=== PATIENT | male | born 1985 | race Caucasian/White ===

== ENCOUNTER 2018-03-21 10:39 | Emergency (ER) | payer SELFPAY ==
[~2018-03-21] VITALS: Ht 175.3 cm; Wt 76.0 kg
--- NOTE | 2018-03-21 11:20 | NUR ---
THIS IS A 32 YO MALE WHO PRESENTS TO THE ER C/O CHRONIC RINGING IN BILAT EARS, RIGHT WORSE TODAY THAN NORMAL AND FREQUENT HEADACHES, PT REPORTS VERY MILD COTA TODAY. PT REPORTS "I WOKE UP AND I JUST FEEL OFF". PT AO X 4. SKIN PWD. RESP EVEN AND EQAUL. PT ABLE TO CAPUTO W/O DIFFICULTY. PERRLA. SENSATION INTACT. MOTHER AT BEDSIDE. PT ON CONT BP AND O2 MONITORS. CALL LIGHT WITHIN REACH. WILL CONT TO MONITOR PT.
[2018-03-21 11:21] VITALS: BP 127/84
--- NOTE | 2018-03-21 12:00 | NUR ---
PT WAS DC'D BY FOZIA LEE WHO DISCUSSED POC WITH PT AND PT'S MOTHER. PT VERBALIZED UNDERSTANDING OF INSTRUCTIONS. PT DID NOT WAIT FOR WRITTEN DC INSTRUCTIONS FROM RN BEFORE LEAVING.
== END 2018-03-21 12:04 | disposition home or self-care (01) ==
LOC: ED 11:58
DX: H93.11 Tinnitus, right ear (principal); R51 Headache; F17.210 Nicotine dependence, cigarettes, uncomplicated
CPT/HCPCS: 99282

== ENCOUNTER 2018-09-06 15:20 | Emergency (ER) | payer MEDICAID ==
[~2018-09-06] VITALS: Ht 175.3 cm; Wt 74.1 kg
[2018-09-06 15:28] VITALS: BP 137/89
== END 2018-09-06 15:57 | disposition home or self-care (01) ==
LOC: ED 15:49
DX: K02.9 Dental caries, unspecified (principal); F17.210 Nicotine dependence, cigarettes, uncomplicated
CPT/HCPCS: 99283; 99406

== ENCOUNTER 2018-09-15 01:21 | Emergency (ER) | payer MEDICAID, OTHER ==
[~2018-09-15] VITALS: Ht 175.3 cm; Wt 74.8 kg
[2018-09-15 01:23] VITALS: BP 143/93
--- NOTE | 2018-09-15 01:35 | NUR ---
pt ambulates from triage to room with steady gait.
[2018-09-15 02:19] LABS: BASOPHILS # (AUTO) 0.05 x10^3/uL (0-0.1); BASOPHILS % (AUTO) 1 % (0-1); EOSINOPHILS % (AUTO) 2 % (1-7); LYMPHOCYTES # (AUTO) 2.13 x10^3/uL (1-3.4); LYMPHOCYTES % (AUTO) 32 % (22-44); MD NO; MEAN CORPUSCULAR HEMOGLOBIN 31.1 pg (27.5-34.5); MEAN CORPUSCULAR VOLUME 91.5 fL (81-97); MEAN PLATELET VOLUME 8.2 fL (7.4-10.4); MONOCYTES # (AUTO) 0.52 x10^3/uL (0.2-0.8); MONOCYTES % (AUTO) 8 % (2-9); NEUTROPHILS # (AUTO) 3.83 x10^3/uL (1.8-6.8); NEUTROPHILS % (AUTO) 58 % (42-75); PLATELET COUNT 306 x10^3/uL (130-400); RED BLOOD COUNT 5.23 x10^6/uL (4.38-5.82); RED CELL DISTRIBUTION WIDTH 12.9 % (9.4-14.8)
[2018-09-15 02:27] LABS: ALBUMIN 4.1 g/dL (3.4-5.0); ANION GAP 9 mmol/L (5-15); CALCIUM 9.3 mg/dL (8.5-10.1); CHLORIDE 109 mmol/L (98-107); CREATININE 1.18 mg/dL (0.7-1.3)
[2018-09-15 02:56] LABS: MICROSCOPIC INDICATED
[2018-09-15 03:03] LABS: AMPHETAMINE SCREEN, URINE Positive (Negative); BARBITURATE SCREEN, URINE Negative (Negative); BENZODIAZEPINE SCREEN, URINE Negative (Negative); CANNABINOID SCREEN, URINE Negative (Negative); COCAINE SCREEN, URINE Negative (Negative); METHADONE SCREEN, URINE Negative (Negative); OPIATE SCREEN, URINE Negative (Negative)
[2018-09-15 03:04] LABS: CULTURE INDICATED? NO
--- NOTE | 2018-09-15 03:26 | NUR ---
pt d/c with d/c summary. all questions answered. pt ambulates to registration desk with steady gait at this time for d/c home with friend.
== END 2018-09-15 03:29 | disposition home or self-care (01) ==
LOC: ED 02:10
DX: R53.1 Weakness (principal); F15.129 Other stimulant abuse with intoxication, unspecified; F17.200 Nicotine dependence, unspecified, uncomplicated; Z72.9 Problem related to lifestyle, unspecified
CPT/HCPCS: 36415; 80048; 80307; 81001; 82040; 85025; 87806; 99283; G0475

== ENCOUNTER 2020-03-19 02:16 | Emergency (ER) | payer MEDICAID ==
[~2020-03-19] VITALS: Ht 175.3 cm; Wt 80.1 kg
--- NOTE | 2020-03-19 02:51 | NUR ---
ASSESSMENT MADE. SEEN BY PA. ORDERS MADE.
--- NOTE | 2020-03-19 03:11 | NUR ---
BLOOD DRAWN BY [employer] DEVELOPMENT ENGINEER. X RAY AND EKG DONE. HOOKED TO MONITOR.
[2020-03-19 03:14] LABS: BASOPHILS % (AUTO) 1 % (0-1); EOSINOPHILS % (AUTO) 4 % (1-7); LYMPHOCYTES % (AUTO) 42 % (22-44); MEAN CORPUSCULAR HGB CONC 35.3 g/dL (33.2-36.2); MEAN PLATELET VOLUME 8.3 fL (7.4-10.4); MONOCYTES % (AUTO) 12 % (2-9); NEUTROPHILS % (AUTO) 42 % (42-75); PLATELET COUNT 309 x10^3/uL (130-400); RED BLOOD COUNT 5.33 x10^6/uL (4.38-5.82); RED CELL DISTRIBUTION WIDTH 13.6 % (9.4-14.8)
[2020-03-19 03:21] LABS: ALANINE AMINOTRANSFERASE 49 U/L (12-78); ANION GAP 8 mmol/L (5-15); CALCIUM 9.8 mg/dL (8.5-10.1); CHLORIDE 107 mmol/L (98-107); CREATININE 1.19 mg/dL (0.7-1.3)
[2020-03-19 03:22] LABS: MD NO
[2020-03-19 03:25] LABS: ALKALINE PHOSPHATASE 121 U/L (45-117); BILIRUBIN,TOTAL 0.3 mg/dL (0.2-1.0); TOTAL PROTEIN 7.4 g/dL (6.4-8.2); TROPONIN I < 0.015 ng/mL (0.000-0.045)
[2020-03-19 03:50] VITALS: BP 117/65
--- NOTE | 2020-03-19 03:50 | NUR ---
RE-EVALUATION DONE. PATIENT DISCHARGED WITH PRESCRIPTION AND INSTRUCTION. VERBALIZED UNDERSTANDING.
== END 2020-03-19 03:52 | disposition home or self-care (01) ==
LOC: ED 03:25
DX: L04.0 Acute lymphadenitis of face, head and neck (principal); R07.89 Other chest pain; F17.210 Nicotine dependence, cigarettes, uncomplicated
CPT/HCPCS: 36415; 71045; 80053; 84484; 85025; 93005; 99285; 99406